=== PATIENT | male | born 1980 | race Caucasian/White ===

== ENCOUNTER → 2017-01-30 | Outpatient (CLI) | payer BC ==
--- NOTE | 2017-01-30 13:36 | REP ---
RIGHT HAND SERIES: Four views of the right hand are performed. There is a nondisplaced fracture of the distal fifth metacarpal with slight anterior angulation. No other acute fracture or dislocation is seen. IMPRESSION: Fracture distal fifth metacarpal with mild anterior angulation. Signed by Cyrus Prado MD 01/30/2017 03:55 P
== END ==
LOC: M WUC 12:33
PROVIDERS: ATTEND Physician Assistant
DX: S62.306A Unspecified fracture of fifth metacarpal bone, right hand, initial encounter for closed fracture (principal); X58.XXXA Exposure to other specified factors, initial encounter; Y92.9 Unspecified place or not applicable; Y93.9 Activity, unspecified; Y99.9 Unspecified external cause status